=== PATIENT | female | born 1980 | race Caucasian/White ===

== ENCOUNTER 2018-10-08 06:35 | Emergency (ER) | payer OTHER ==
[2018-10-08 06:54] VITALS: BP 156/100; TEMP 99.5; BMI 57.4
[2018-10-08] MEDS ORDERED: SODIUM CHLORIDE 1,000 ML IV STA (07:08)
[2018-10-08] MEDS ORDERED: DILAUDID 1 MG/ML SYRINGE IVP STA ×2 (07:11→10:21)
[2018-10-08] MEDS ORDERED: ZOFRAN 4 MG/2 ML IVP STA (07:11)
--- NOTE | 2018-10-08 09:07 | CT ---
EXAM: CT scan of the abdomen pelvis with and without contrast HISTORY: Abdominal pain TECHNIQUE: Helical imaging of the abdomen pelvis was performed before and after the intravenous admi nistration of contrast. 3 mm thin axial images and coronal and sagittal reconstructions were provide d for interpretation. Comparison 10/14/2015 CT scan of the abdomen and pelvis. FINDINGS: There has been previous cholecystectomy. Low density changes are seen throughout the pare nchyma of the liver. The spleen, pancreas, adrenal glands and kidneys appear normal. The proximal u reters are normal size. Inflammatory changes are seen within the small bowel mesentery seen on axial image number 80. There is abnormal free air seen within the small bowel mesentery seen on axial image number 72. The colon appears to be normal caliber. Diverticular disease of the descending colon and sigmoid colon is identified without acute inflammation. The helical images obtained through the pelvis demonstrate a normal appearance of the rectum, urinary bladder. There is no free fluid seen within the pelvis. The appendix was not well seen. Lung bases are clear. No lytic or blastic lesions are seen within the osseous structures. IMPRESSION: Inflammatory changes are seen along the proximal to mid small bowel and the findings may represent enteritis. There is free air seen within the small bowel mesentery concerning for perforat ion of the small bowel. Surgery consult is recommended. No evidence for bowel obstruction or abscess formation. Diverticular disease of the distal colon without acute inflammation. Critical result: The findings were communicated to at 9:02 a.m. 10/08/2018.
--- NOTE | 2018-10-08 09:32 | ED.PDOC ---
General ED Provider: Dr. JABIER NAVARRO-ER Chief Complaint: Abdominal Pain Stated Complaint: im hurting bad Time Seen by Physician: 06:45 Mode of Arrival: Walk-In Information Source: Patient Exam Limitations: No limitations Nursing and Triage Documentation Reviewed and Agree: Yes Does patient meet sepsis criteria?: No System Inflammatory Response Syndrome: Not Applicable Sepsis Protocol: For patient's 13 years and over: Temp is 96.8 and below OR 101 and greater Pulse >90 BPM Resp >20/minute Acutely Altered Mental Status Are patient's symptoms suggestive of a new infection, such as: -Pneumonia -Skin, Soft Tissue -Endocarditis -UTI -Bone, Joint Infection -Implantable Device -Acute Abdominal Infection -Wound Infection -Meningitis -Blood Stream Catheter Infection -Unknown GI Complaint Exam - Abdominal Pain Complaint/Exam Onset: Gradual Duration: several hours Symptoms Are: Still present Timing: Constant Initial Severity: Mild Current Severity: Moderate Location of Pain: Diffuse Character: Reports: Dull, Cramping Aggravating: Reports: Movement Alleviating: Reports: None Associated Signs and Symptoms: Reports: Nausea Patient Rh Status: Unknown Abdominal Findings: Present: Rebound tenderness Differential Diagnoses: Appendicitis, Bowel Obstruction Quality Indicator For Non-Traumatic Chest Pain/Syncope: EKG Performed Review of Systems - Review Of Systems Constitutional: Reports: No symptoms Eyes: Reports: No symptoms Ears, Nose, Mouth, Throat: Reports: No symptoms Respiratory: Reports: No symptoms Cardiac: Reports: No symptoms GI: Reports: Abdominal pain, Nausea : Reports: No symptoms Musculoskeletal: Reports: No symptoms Skin: Reports: No symptoms Neurological: Reports: No symptoms Endocrine: Reports: No symptoms Hematologic/Lymphatic: Reports: No symptoms All Other Systems: Reviewed and Negative Past Medical History - Past Medical History Previously Healthy: No Endocrine: Reports: Unknown Cardiovascular: Reports: Unknown Respiratory: Reports: Unknown Hematological: Reports: Unknown Gastrointestinal: Reports: Unknown Genitourinary: Reports: Unknown Neuro/Psych: Reports: Unknown Musculoskeletal: Reports: Unknown Cancer: Reports: Unknown Last Menstrual Period: 3 YEARS - Surgical History General Surgical History: Reports: Unknown - Family History Family History: Reports: Unknown - Social History Smoking Status: Current every day smoker, Light tobacco smoker Hx Substance Use: No Alcohol Screening: Occasionally - Immunizations Tetanus Shot up to Date: Yes Physical Exam - Physical Exam Appearance: Obese Pain Distress: Moderate Eyes: JESUS MANUEL, EOMI, Conjunctiva clear ENT: Ears normal, Nose normal, Oropharynx normal Neck: Supple Respiratory: Airway patent Cardiovascular: RRR, Pulses normal, No rub, No murmur GI/: No Organomegaly, Tender, Bowel sounds hypoactive Musculoskeletal: Normal strength, ROM intact, No edema, No calf tenderness Skin: Warm, Dry, Normal color Neurological: Sensation intact Psychiatric: Affect appropriate, Mood appropriate Interpretation - Radiology Interpretation Radiology Interpretation By: Radiologist Radiology Results: Positive Exam Interpreted: CT Scan - EKG Interpretation Time of EKG #1: 09:33 Rate: Normal Rhythm: Sinus Ectopy: None [place]: NL ST Segment: Normal Interpretation: nsr Re-Evaluation - Re-Evaluation Time of Re-Evaluation: 09:54 Status: Improved Vital Signs Stable: Yes Pain Level: 1 Appearance: NAD Lungs: Clear Skin: Warm and Dry Neuro: Alert and Oriented X3 CV: RRR Physician Notification - Case Discussed Physician Notified: dr morejon(er) and dr rich chan(surgery) accepted at [facility] Time of Notification: 09:55 Physician Notified: dr welsh (surgery) declined due to UC with possible complications Time of Notification: 09:55 Critical Care Note - Critical Care Note Total Time (mins): 30 Course - Course Hematology/Chemistry: 10/08/18 07:40 10/08/18 07:40 Orders, Labs, Meds: Lab Review 10/08/18 10/08/18 10/08/18 07:05 07:40 07:40 WBC 19.65 H RBC 4.44 Hgb 12.6 Hct 37.1 MCV 83.6 MCH 28.4 MCHC 34.0 RDW Coeff of Marcelo 14.6 Plt Count 266 Immature Gran % (Auto) 0.5 Neut % (Auto) 86.4 Lymph % (Auto) 8.3 L [place] % (Auto) 4.1 Eos % (Auto) 0.4 Baso % (Auto) 0.3 Immature Gran # (Auto) 0.1 Neut # (Auto) 17.0 H Lymph # (Auto) 1.6 Hard[place] # (Auto) 0.8 Eos # (Auto) 0.1 Baso # (Auto) 0.1 Puncture Site Rb O2 Saturation 99.0 ABG pH 7.560 H* ABG pCO2 26.1 L ABG pO2 114.0 H ABG HCO3 23.4 ABG Total CO2 24 ABG Base Excess 1 FiO2 % 21.0 Sodium 131.1 L Potassium 3.79 Chloride 99.2 Carbon Dioxide 25.4 Anion Gap 10.29 BUN 7.1 Creatinine 0.55 L Estimated GFR (MDRD) 122.00 BUN/Creatinine Ratio 12.90 Glucose 210.8 H Lactic Acid Calcium 8.80 Total Bilirubin 0.76 AST 22.3 ALT 30.9 Alkaline Phosphatase 48.6 Total Creatine Kinase 61.8 Troponin I < 0.012 Total Protein 6.71 Albumin 3.64 Globulin 3.07 Albumin/Globulin Ratio 1.18 Amylase 51.7 Lipase 29.5 Procalcitonin Serum , Qual 10/08/18 10/08/18 10/08/18 07:40 07:40 07:40 WBC RBC Hgb Hct MCV MCH MCHC RDW Coeff of Marcelo Plt Count Immature Gran % (Auto) Neut % (Auto) Lymph % (Auto) [place] % (Auto) Eos % (Auto) Baso % (Auto) Immature Gran # (Auto) Neut # (Auto) Lymph # (Auto) [place] # (Auto) Eos # (Auto) Baso # (Auto) Puncture Site O2 Saturation ABG pH ABG pCO2 ABG pO2 ABG HCO3 ABG Total CO2 ABG Base Excess FiO2 % Sodium Potassium Chloride Carbon Dioxide Anion Gap BUN Creatinine Estimated GFR (MDRD) BUN/Creatinine Ratio Glucose Lactic Acid 1.22 Calcium Total Bilirubin AST ALT Alkaline Phosphatase Total Creatine Kinase Troponin I Total Protein Albumin Globulin Albumin/Globulin Ratio Amylase Lipase Procalcitonin 0.86 Serum , Qual Negative Orders Category Date Time Status ABG DRAW REQUEST Stat CARDIO 10/08/18 07:05 Completed EKG-(ED ONLY) Stat CARDIO 10/08/18 07:05 Completed NPO REMINDER: IMAGING ONCE CARE 10/08/18 07:09 Completed IV [ED IV/MEDIPORT/POWERPORT] .ONCE EMERGENCY 10/08/18 07:07 Active ABG Stat LAB 10/08/18 07:05 Completed AMYLASE Stat LAB 10/08/18 07:40 Completed BLOOD CULTURE (ED ONLY) Stat LAB 10/08/18 07:40 Received CBC W/ AUTO DIFF Stat LAB 10/08/18 07:40 Completed COMPREHENSIVE METABOLIC PANEL Stat LAB 10/08/18 07:40 Completed CREATINE KINASE Stat LAB 10/08/18 07:40 Completed LACTIC ACID Stat LAB 10/08/18 07:40 Completed LIPASE Stat LAB 10/08/18 07:40 Completed PROCALCITONIN Stat LAB 10/08/18 07:40 Completed SERUM Stat LAB 10/08/18 07:40 Completed TROPONIN I Stat LAB 10/08/18 07:40 Completed URINALYSIS C & S IF INDICATED Stat LAB 10/08/18 07:05 Uncollected 0.9 % Sodium Chloride [Saline Flush] MEDS 10/08/18 07:07 Active 1 syr IVF PRN PRN Hydromorphone HCl [Dilaudid 1 mg/ml Syringe] MEDS 10/08/18 07:11 Discontinued 1 mg IVP ONCE STA Ondansetron HCl/Pf [Zofran 4 mg/2 ml] MEDS 10/08/18 07:11 Discontinued 4 mg IVP ONCE STA Piperacillin Sodium/Tazobactam [Zosyn 3.375 gm] 3.375 MEDS 10/08/18 09:49 Active gm 0.9 % Sodium Chloride [Sodium Chloride] 50 ml IV ONCE Sodium Chloride 0.9% [Sodium Chloride] 1,000 ml MEDS 10/08/18 07:08 Active IV 100 mls/hr CT ABDOMEN/PELVIS W/WO CONTRAS Stat RADS 10/08/18 07:09 Completed Medications Generic Name Dose Route Start Last Admin Trade Name Freq PRN Reason Stop Dose Admin Sodium Chloride 1,000 mls @ 100 mls/hr 10/08/18 07:08 10/08/18 07:53 Sodium Chloride IV 10/08/18 17:07 100 mls/hr .Q10H STA Administration Piperacillin Sod/Tazobactam 50 mls @ 50 mls/hr 10/08/18 09:49 Sod 3.375 gm/ Sodium Chloride IV 10/08/18 10:48 ONCE STA Sodium Chloride 1 syr 10/08/18 07:07 10/08/18 07:56 Saline Flush IVF 1 syr PRN PRN Administration To flush IV Discontinued Medications Generic Name Dose Route Start Last Admin Trade Name Freq PRN Reason Stop Dose Admin Hydromorphone HCl 1 mg 10/08/18 07:11 10/08/18 07:51 Dilaudid 1 Mg/Ml Syringe IVP 10/08/18 07:12 1 mg ONCE STA Administration Ondansetron HCl 4 mg 10/08/18 07:11 10/08/18 07:50 Zofran 4 Mg/2 Ml IVP 10/08/18 07:12 4 mg ONCE STA Administration It should be known dr welsh declined due to UC hx--i offered her a transfer [facility] ER but she declined and desires to go to [place] for tx--she understands we do not have helicopter or fixed wing for transport) Vital Signs: Temp Pulse Resp BP Pulse Ox 10/08/18 06:36 99.5 F 131 H 28 H 156/100 H 97 Departure - Departure Time of Disposition: 09:55 Disposition: TSF SHORT-TRM HOSP Discharge Problem: Small bowel perforation Instructions: Perforated Bowel (DC) Condition: Stable Pt referred to PMD for follow-up: No IPMP verified?: No Allergies/Adverse Reactions: Allergies morphine Allergy (Intermediate, Verified 10/08/18 06:56) Itching ciprofloxacin [From Cipro] Adverse Reaction (Verified 10/08/18 06:56) Itching ALLERGY ONLY TO IV CIPRO CAN TAKE PO CIPRO WITHOUT PROBLEMS Home Medications: Ambulatory Orders Hydrocodone/Acetaminophen [[place] 7.5-325 Tablet] 1 each PO TID PRN 06/12/15 Restful Legs Otc 1 tab-cap PO BEDTIME 16 Metformin HCl 500 mg PO BID 10/08/18 Transfer Form Completed: Yes Disposition Discussed With: Patient, Family
[2018-10-08] MEDS ORDERED: ZOSYN 3.375 GM 3.375 GM in SODIUM CHLORIDE 50 ML IV STA (09:49)
== END 2018-10-08 10:40 | disposition short-term general hospital (02) ==
LOC: ED 06:35
DX: K63.1 Perforation of intestine (nontraumatic) (principal); F17.210 Nicotine dependence, cigarettes, uncomplicated
CPT/HCPCS: 36415; 80053; 81001; 82150; 82550; 82803; 83605; 83690; 84145; 84484; 84703; 85025; 87040; 93005; 93010; 96361; 96365; 96375; 96376; 99285

== ENCOUNTER 2018-10-08 12:00 | Outpatient (CLI) ==
[2018-10-08 06:54] VITALS: BMI 57.4
== END 2018-10-08 14:03 | disposition short-term general hospital (02) ==
LOC: AMBL 12:00
PROVIDERS: ATTEND Family Medicine
DX: R10.0 Acute abdomen (principal)

== ENCOUNTER 2019-04-16 07:33 | Emergency (ER) ==
[2019-04-16 07:37] VITALS: BP 172/118; TEMP 97.9; BMI 49.4
--- NOTE | 2019-04-16 07:55 | ED.PDOC ---
General ED Provider: Dr. LAURA AREVALO Chief Complaint: Respiratory Complaint Stated Complaint: cough congestion Time Seen by Physician: 07:40 Mode of Arrival: Walk-In Information Source: Patient Exam Limitations: No limitations Nursing and Triage Documentation Reviewed and Agree: Yes Does patient meet sepsis criteria?: No System Inflammatory Response Syndrome: Not Applicable Sepsis Protocol: For patient's 13 years and over: Temp is 96.8 and below OR 101 and greater Pulse >90 BPM Resp >20/minute Acutely Altered Mental Status Are patient's symptoms suggestive of a new infection, such as: -Pneumonia -Skin, Soft Tissue -Endocarditis -UTI -Bone, Joint Infection -Implantable Device -Acute Abdominal Infection -Wound Infection -Meningitis -Blood Stream Catheter Infection -Unknown Respiratory Complaint Exam - Respiratory Complaint/Exam Symptoms Are: Still present Timing: Intermittent Initial Severity: Mild Current Severity: Mild Location: Chest Character: Reports: Non-productive cough Aggravating: Reports: None Alleviating: Reports: None Associated Signs and Symptoms: Reports: URI, Nasal congestion. Denies: Rapid breathing, Dyspnea, Fever, Chills, Chest pain, Pleuritic chest pain, Wheezing, Hemoptysis, Dizziness, Calf pain, Calf swelling, Edema, Hoarseness, Sinus discomfort, Vomiting, Sore throat, Weight loss, Decreased oral intake, Increased thirst, Increased appetite, Increased urination Related History: Reports: Similar episode History of Healthcare-Acquired Pneumonia: No Related Surgical History: Reports: None Pulmonary Embolism Risk Factors: None Cardiac Risk Factors: Reports: None Pseudomonas Risk Factors: Reports: None Tuberculosis Risk Factors: Reports: None Status Asthmaticus Risk Factors: Reports: None Home Oxygen Use: No Recent Stress Test: No Recent Echo/LV Function: No Current Antibiotic Use: No Current Asthma Medication Use: No Respiratory Distress: None Inadequate Respiratory Effort: No Dysphagia Present: No Stridor Present: No JVD Present: No Accessory Muscle Use: No Retractions: Not Present Diminished Breath Sounds: Yes Grunting Respirations: No Kussmaul Respirations: No Differential Diagnoses: Pneumonia, Bronchitis Review of Systems - Review Of Systems Constitutional: Reports: No symptoms Eyes: Reports: No symptoms Ears, Nose, Mouth, Throat: Reports: No symptoms Respiratory: Reports: Cough Cardiac: Reports: No symptoms GI: Reports: No symptoms : Reports: No symptoms Musculoskeletal: Reports: No symptoms Skin: Reports: No symptoms Neurological: Reports: No symptoms Endocrine: Reports: No symptoms Hematologic/Lymphatic: Reports: No symptoms All Other Systems: Reviewed and Negative Past Medical History - Past Medical History Previously Healthy: No Endocrine: Reports: Unknown Cardiovascular: Reports: Unknown Respiratory: Reports: Unknown Hematological: Reports: Unknown Gastrointestinal: Reports: Unknown Genitourinary: Reports: Unknown Neuro/Psych: Reports: Unknown Musculoskeletal: Reports: Unknown Cancer: Reports: Unknown Last Menstrual Period: 3 years ago - Surgical History General Surgical History: Reports: Unknown - Family History Family History: Reports: Unknown - Social History Smoking Status: Current every day smoker, Light tobacco smoker Hx Substance Use: No Alcohol Screening: Occasionally Physical Exam - Physical Exam Appearance: Well-appearing, No pain distress, Well-nourished Eyes: JESUS MANUEL, EOMI, Conjunctiva clear ENT: Ears normal, Nose normal, Oropharynx normal Respiratory: Rhonchi Cardiovascular: RRR, Pulses normal, No rub, No murmur GI/: Soft, Nontender, No masses, Bowel sounds normal, No Organomegaly Musculoskeletal: Normal strength, ROM intact, No edema, No calf tenderness Skin: Warm, Dry, Normal color Neurological: Sensation intact, Motor intact, Reflexes intact, Cranial nerves intact, Alert, Oriented Psychiatric: Affect appropriate, Mood appropriate Critical Care Note - Critical Care Note Total Time (mins): 0 Course - Course Orders, Labs, Meds: Orders Category Date Time Status CHEST, 2 VIEWS PA & LAT Stat RADS 04/16/19 07:50 Ordered Vital Signs: Temp Pulse Resp BP Pulse Ox 04/16/19 07:34 97.9 F 94 H 20 172/118 H 95 Departure - Departure Time of Disposition: 07:59 Disposition: HOME SELF-CARE Discharge Problem: Bronchitis Sinusitis Qualifiers: Sinusitis location: maxillary Chronicity: acute Recurrence: non-recurrent Qualified Code(s): J01.00 - Acute maxillary sinusitis, unspecified Instructions: Acute Bronchitis (ED), Sinusitis (ED) Condition: Good Pt referred to PMD for follow-up: Yes IPMP verified?: No Additional Instructions: Please call your Family Physician as soon as possible to schedule a follow-up appointment. Prescriptions: Amoxicillin 500 mg PO Q6HR #30 tablet Allergies/Adverse Reactions: Allergies morphine Allergy (Intermediate, Verified 04/16/19 07:37) Itching ciprofloxacin [From Cipro] Adverse Reaction (Verified 04/16/19 07:37) Itching ALLERGY ONLY TO IV CIPRO CAN TAKE PO CIPRO WITHOUT PROBLEMS Home Medications: Ambulatory Orders Hydrocodone/Acetaminophen [[place] 7.5-325 Tablet] 1 each PO TID PRN 06/12/15 Metformin HCl 500 mg PO BID 10/08/18 Amoxicillin 500 mg PO Q6HR #30 tablet 04/16/19 Levothyroxine Sodium [Synthroid] 04/16/19 Pravastatin Sodium [Pravachol] 20 mg PO DAILY 04/16/19 Disposition Discussed With: Patient
--- NOTE | 2019-04-16 08:13 | DI ---
Exam: Two views of the chest. Comparison: 01/27/2016. Reason for exam: Cough. FINDINGS: No pneumothorax, pleural effusion, or focal consolidation. The cardiac silhouette is not enlarged. The imaged osseous structures appear grossly unremarkable without acute fracture. Impression: No acute cardiopulmonary process.
== END 2019-04-16 08:23 | disposition home or self-care (01) ==
LOC: ED 07:33
DX: J40 Bronchitis, not specified as acute or chronic (principal); J01.00 Acute maxillary sinusitis, unspecified; F17.210 Nicotine dependence, cigarettes, uncomplicated
CPT/HCPCS: 99282

== ENCOUNTER 2019-06-18 08:20 | Emergency (ER) ==
[2019-06-18 08:28] VITALS: TEMP 98.6; BMI 48.1
--- NOTE | 2019-06-18 08:41 | ED.PDOC ---
General ED Provider: Dr. 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) Time Seen by Physician: 08:35 Mode of Arrival: Walk-In Information Source: Patient Nursing and Triage Documentation Reviewed and Agree: Yes Does patient meet sepsis criteria?: No System Inflammatory Response Syndrome: Not Applicable Sepsis Protocol: For patient's 13 years and over: Temp is 96.8 and below OR 101 and greater Pulse >90 BPM Resp >20/minute Acutely Altered Mental Status Are patient's symptoms suggestive of a new infection, such as: -Pneumonia -Skin, Soft Tissue -Endocarditis -UTI -Bone, Joint Infection -Implantable Device -Acute Abdominal Infection -Wound Infection -Meningitis -Blood Stream Catheter Infection -Unknown Review of Systems - Review Of Systems Constitutional: Reports: Malaise Respiratory: Reports: No symptoms Cardiac: Reports: No symptoms : Reports: No symptoms (Had STD 1 month ago; TXd with Metronidazole - check up last week benign) Skin: Reports: No symptoms Neurological: Reports: No symptoms All Other Systems: Reviewed and Negative Past Medical History - Past Medical History Previously Healthy: No Endocrine: Reports: Unknown Cardiovascular: Reports: Unknown Respiratory: Reports: Unknown Hematological: Reports: Unknown Gastrointestinal: Reports: Unknown Genitourinary: Reports: Unknown Neuro/Psych: Reports: Unknown Musculoskeletal: Reports: Unknown Cancer: Reports: Unknown Last Menstrual Period: 1 1/2 mo ago--spotted - Surgical History General Surgical History: Reports: Unknown - Family History Family History: Reports: Unknown - Social History Smoking Status: Current every day smoker, Heavy tobacco smoker Hx Substance Use: No Alcohol Screening: Occasionally Physical Exam - Physical Exam Appearance: Ill-appearing Ill-appearing: Mild Pain Distress: Moderate Eyes: JESUS MANUEL, EOMI ENT: Oropharynx normal Neck: Supple Respiratory: Airway patent, Breath sounds clear, Respirations nonlabored Cardiovascular: RRR, Pulses normal GI/: Soft, Tender (with palpation RLQ also with palpation LLQ gives pain RLQ; rebound +), Bowel sounds hyperactive Skin: Warm, Dry, Normal color Neurological: Sensation intact, Motor intact, Alert, Oriented Psychiatric: Affect appropriate, Mood appropriate Re-Evaluation - Re-Evaluation Time of Re-Evaluation: 09:20 (Discussed plan for CT abd/pelvis) Status: Unchanged Vital Signs Stable: Yes Appearance: Other (Uncomfortable in bed) Neuro: Alert and Oriented X3 Critical Care Note - Critical Care Note Total Time (mins): 20 Course - Course Hematology/Chemistry: 06/18/19 08:52 06/18/19 08:52 Orders, Labs, Meds: Lab Review 06/18/19 06/18/19 06/18/19 08:52 08:52 08:52 WBC 11.89 H RBC 4.47 Hgb 13.0 Hct 39.2 MCV 87.7 MCH 29.1 MCHC 33.2 RDW Coeff of Marcelo 14.4 Plt Count 303 Immature Gran % (Auto) 0.3 Neut % (Auto) 65.4 Lymph % (Auto) 22.2 [place] % (Auto) 5.0 Eos % (Auto) 6.7 Baso % (Auto) 0.4 Immature Gran # (Auto) 0.0 Neut # (Auto) 7.8 H Lymph # (Auto) 2.6 [place] # (Auto) 0.6 Eos # (Auto) 0.8 H Baso # (Auto) 0.1 Sodium 138.9 Potassium 4.05 Chloride 104.9 Carbon Dioxide 25.9 Anion Gap 12.15 BUN 7.6 Creatinine 0.72 Estimated GFR (MDRD) 89.00 BUN/Creatinine Ratio 10.55 Glucose 141.1 H Calcium 8.90 Total Bilirubin 0.53 AST 22.5 ALT 19.4 Alkaline Phosphatase 57.6 Total Protein 6.83 Albumin 3.66 Globulin 3.17 Albumin/Globulin Ratio 1.15 Serum , Qual Negative Urine Color Urine Clarity Urine pH Ur Specific Williams Urine Protein Urine Glucose (UA) Urine Ketones Urine Blood Urine Nitrite Urine Bilirubin Urine Urobilinogen Ur Leukocyte Esterase Urine Microscopic WBC Ur Squamous Epith Cells 06/18/19 09:55 WBC RBC Hgb Hct MCV MCH MCHC RDW Coeff of Marcelo Plt Count Immature Gran % (Auto) Neut % (Auto) Lymph % (Auto) [place] % (Auto) Eos % (Auto) Baso % (Auto) Immature Gran # (Auto) Neut # (Auto) Lymph # (Auto) [place] # (Auto) Eos # (Auto) Baso # (Auto) Sodium Potassium Chloride Carbon Dioxide Anion Gap BUN Creatinine Estimated GFR (MDRD) BUN/Creatinine Ratio Glucose Calcium Total Bilirubin AST ALT Alkaline Phosphatase Total Protein Albumin Globulin Albumin/Globulin Ratio Serum , Qual Urine Color Yellow Urine Clarity Cloudy Urine pH 5.5 Ur Specific Williams 1.025 Urine Protein Negative Urine Glucose (UA) Negative Urine Ketones Negative Urine Blood Negative Urine Nitrite Negative Urine Bilirubin Negative Urine Urobilinogen 0.2 Ur Leukocyte Esterase Negative Urine Microscopic WBC 0-2 Ur Squamous Epith Cells 10-20 Orders Category Date Time Status NPO REMINDER: IMAGING ONCE CARE 06/18/19 09:23 Completed NPO REMINDER: IMAGING ONCE CARE 06/18/19 09:26 Completed CBC W/ AUTO DIFF Stat LAB 06/18/19 08:52 Completed COMPREHENSIVE METABOLIC PANEL Stat LAB 06/18/19 08:52 Completed SERUM Stat LAB 06/18/19 08:52 Completed URINALYSIS C & S IF INDICATED Stat LAB 06/18/19 09:55 Completed Hydromorphone HCl [Dilaudid 1 mg/ml Syringe] MEDS 06/18/19 09:21 Discontinued 2 mg IVP ONCE STA Hydromorphone HCl/Pf [Dilaudid 4 mg/ml Syringe] MEDS 06/18/19 08:44 Discontinued 2 mg IVP ONCE STA Ondansetron HCl/Pf [Zofran 4 mg/2 ml] MEDS 06/18/19 08:47 Discontinued 4 mg IVP ONCE STA Sodium Chloride 0.9% [Sodium Chloride] 1,000 ml MEDS 06/18/19 08:[address] ABDOMEN/PELVIS W CONTRAST Stat RADS 06/18/19 09:25 Completed Medications Discontinued Medications Generic Name Dose Route Start Last Admin Trade Name Royalq PRN Reason Stop Dose Admin Hydromorphone HCl 2 mg 06/18/19 08:44 06/18/19 09:27 Dilaudid 4 Mg/Ml Syringe IVP 06/18/19 08:45 Not Given ONCE STA Hydromorphone HCl 2 mg 06/18/19 09:21 06/18/19 09:38 Dilaudid 1 Mg/Ml Syringe IVP 06/18/19 09:22 2 mg ONCE STA Administration Sodium Chloride 1,000 mls @ 1,000 mls/hr 06/18/19 08:42 06/18/19 09:28 Sodium Chloride IV 06/18/19 09:41 1,000 mls/hr BOLUS STA Administration Ondansetron HCl 4 mg 06/18/19 08:47 06/18/19 09:29 Zofran 4 Mg/2 Ml IVP 06/18/19 08:48 4 mg ONCE STA Administration Vital Signs: Temp Pulse Resp BP Pulse Ox 06/18/19 10:02 134/94 H 06/18/19 08:20 98.6 F 98 H 20 173/120 H 95 Departure - Departure Time of Disposition: 10:40 Disposition: HOME SELF-CARE Discharge Problem: Diverticulitis Instructions: Diverticulitis (ED) Condition: Stable Pt referred to PMD for follow-up: Yes (Follow up with primary care; call for appointment) IPMP verified?: No (not applicable) Additional Instructions: Call primary care provider; let them know you were seen in ER and a CT was done. Mild Diverticulitis was identified and you were placed on Metronidazole - not Cipro because of allergy - ask Primary care if there is anything else they would like to add. We are not sure which "blue" pill for inflamation was added to the metronidazone last time you were treated for diverticulitis. Return to ER if worsening (doubleing up with pain) repeated vomiting or fever of 101 or above not relieved by tylenol. Prescriptions: Ondansetron [Zofran Odt] 4 mg PO Q6HR PRN #10 tab.rapdis PRN Reason: Nausea / Vomiting Metronidazole 500 mg PO TID #21 tablet Allergies/Adverse Reactions: Allergies morphine Allergy (Intermediate, Verified 06/18/19 08:30) Itching ciprofloxacin [From Cipro] Adverse Reaction (Verified 06/18/19 08:30) Itching ALLERGY ONLY TO IV CIPRO CAN TAKE PO CIPRO WITHOUT PROBLEMS Home Medications: Ambulatory Orders Hydrocodone/Acetaminophen [[place] 7.5-325 Tablet] 1 each PO TID PRN 06/12/15 Metformin HCl 500 mg PO BID 10/08/18 Levothyroxine Sodium [Synthroid] 0.25 mg PO DAILY 04/16/19 Pravastatin Sodium [Pravachol] 20 mg PO DAILY 04/16/19 Metronidazole 500 mg PO TID #21 tablet 06/18/19 Ondansetron [Zofran Odt] 4 mg PO Q6HR PRN #10 tab.rapdis 06/18/19 Disposition Discussed With: Patient
[2019-06-18] MEDS ORDERED: SODIUM CHLORIDE 1,000 ML IV STA (08:42)
[2019-06-18] MEDS ORDERED: DILAUDID 4 MG/ML SYRINGE IVP STA (08:44)
[2019-06-18] MEDS ORDERED: ZOFRAN 4 MG/2 ML IVP STA (08:47)
[2019-06-18] MEDS ORDERED: DILAUDID 1 MG/ML SYRINGE IVP STA (09:21)
[2019-06-18 10:03] VITALS: BP 134/94
--- NOTE | 2019-06-18 10:27 | CT ---
EXAM: CT ABDOMEN AND PELVIS HISTORY: Abdominal pain TECHNIQUE: CT abdomen and pelvis with intravenous contrast. Images were reconstructed using 5 mm se ction thickness. Reformations were prepared. FINDINGS: Compared to 10/08/2018. The elongated right hepatic lobe. Mild fatty infiltration of the liver. Spleen within normal limits . Gallbladder is absent. Pancreas and adrenal glands are within normal limits. There is no hydrone phrosis. Normal enhancement of the renal parenchyma. Normal abdominal aorta. Stomach is within normal limits. Normal appendix. There is mild to moderate distal colon diverticul osis. There is at least mild fatty stranding around the sigmoid colon which is also affected by the diverticulosis. This would be consistent with diverticulitis. There is no ascites, abscess or free air. Postop changes of the small bowel. No bowel obstruction is seen. There are hernias of the jefferson tral abdominal wall with the most inferior at the umbilicus having a sagittal neck of 2.6 cm. A supr aumbilical fatty hernia has sagittal neck of 3.2 cm. The umbilical level hernia is relatively stable to slightly worsened. The supraumbilical hernia is new. Bones reveal degenerative disc disease and arthropathy of the sacroiliac joints and hips. Lung bases are clear. IMPRESSION: 1. There is at least mild diverticulitis at the level of the sigmoid colon. No abscess, free air or bowel obstruction. 2. Fatty liver. 3. Ventral hernias as described in the last paragraph of report. These contain only fat.
== END 2019-06-18 11:01 | disposition home or self-care (01) ==
LOC: ED 08:20
DX: K57.92 Diverticulitis of intestine, part unspecified, without perforation or abscess without bleeding (principal); F17.210 Nicotine dependence, cigarettes, uncomplicated; Z79.899 Other long term (current) drug therapy
CPT/HCPCS: 36415; 80053; 81001; 84703; 85025; 96360; 96361; 96374; 96375; 99283

== ENCOUNTER 2019-07-02 03:14 | Emergency (ER) ==
[2019-07-02 03:21] VITALS: BP 153/88; TEMP 97
[2019-07-02 03:27] VITALS: BMI 48.6
--- NOTE | 2019-07-02 03:32 | ED.PDOC ---
General ED Provider: Dr. RADHA HUTCHINSON Chief Complaint: Abdominal Pain Stated Complaint: Pateint is a 39 year old female who comes to the ER with left lower abdominal pain that radiates tot he Back. was here two weeks prior and Diagnosed with diverticulitis. states that the pain is severe. She had vomited 4 times and has had on episode of diarrhea. Time Seen by Physician: 03:30 Mode of Arrival: Wheelchair Information Source: Patient Primary Care Provider: LAURA DALLAS Nursing and Triage Documentation Reviewed and Agree: Yes Does patient meet sepsis criteria?: No System Inflammatory Response Syndrome: Not Applicable Sepsis Protocol: For patient's 13 years and over: Temp is 96.8 and below OR 101 and greater Pulse >90 BPM Resp >20/minute Acutely Altered Mental Status Are patient's symptoms suggestive of a new infection, such as: -Pneumonia -Skin, Soft Tissue -Endocarditis -UTI -Bone, Joint Infection -Implantable Device -Acute Abdominal Infection -Wound Infection -Meningitis -Blood Stream Catheter Infection -Unknown GI Complaint Exam - Abdominal Pain Complaint/Exam Onset: Sudden Duration: tonight Symptoms Are: Still present Timing: Constant Initial Severity: Severe Current Severity: Severe Location of Pain: RLQ Character: Reports: Aching, Throbbing Aggravating: Reports: Movement, Position, Eating Alleviating: Reports: None Associated Signs and Symptoms: Reports: Nausea, Vomiting Cardiac Risk Factors: Reports: DM, Hypertension Ectopic Risk Factors: Reports: None Ovarian Torsion Risk Factors: Reports: None Surgical Obstruction Risk Factors: Reports: None Related Surgical History: Reports: Cholecystectomy Patient Rh Status: Unknown Abdominal Findings: Present: Rebound tenderness (Left lower abdomen ) Differential Diagnoses: Appendicitis, Bowel Obstruction, Diverticulitis, Pancreatitis Review of Systems - Review Of Systems Constitutional: Reports: No symptoms Eyes: Reports: No symptoms Ears, Nose, Mouth, Throat: Reports: No symptoms Respiratory: Reports: No symptoms Cardiac: Reports: No symptoms GI: Reports: Abdominal pain, Diarrhea (x1 ), Nausea, Poor appetite, Poor fluid intake, Vomiting : Reports: No symptoms Musculoskeletal: Reports: No symptoms Skin: Reports: No symptoms Neurological: Reports: Anxiety Endocrine: Reports: No symptoms Hematologic/Lymphatic: Reports: No symptoms All Other Systems: Reviewed and Negative Past Medical History - Past Medical History Previously Healthy: No Endocrine: Reports: None, DM 2, Dyslipidemia Cardiovascular: Reports: None Respiratory: Reports: Asthma Hematological: Reports: None Gastrointestinal: Reports: Diverticulitis, Other (ULCERATIVE COLITIS) Genitourinary: Reports: Kidney stones Neuro/Psych: Reports: Migraine Musculoskeletal: Reports: Arthritis, Back Pain, Joint Pain (Knee ) Cancer: Reports: None Last Menstrual Period: 4 YEARS AGO Other Pertinent Past Medical History: GUM DISEASE - Surgical History General Surgical History: Reports: Cholecystectomy, Tonsillectomy, Other (PE tubes ) - Family History Family History: Reports: Unknown - Social History Smoking Status: Current every day smoker, Heavy tobacco smoker Hx Substance Use: No Alcohol Screening: Occasionally - Immunizations Tetanus Shot up to Date: Yes Physical Exam - Physical Exam Appearance: Ill-appearing, Obese Ill-appearing: Moderate Pain Distress: Severe Eyes: JESUS MANUEL, EOMI, Conjunctiva clear ENT: Ears normal, Nose normal, Oropharynx normal Neck: Supple Respiratory: Airway patent, Breath sounds clear, Breath sounds equal, Respirations nonlabored Cardiovascular: RRR, Pulses normal, No rub, No murmur GI/: Tender (On the left lower quarant ) Musculoskeletal: Normal strength, ROM intact, No edema, No calf tenderness Skin: Warm, Dry, Normal color Neurological: Sensation intact, Motor intact, Reflexes intact, Cranial nerves intact, Alert, Oriented Psychiatric: Anxious Interpretation - Radiology Interpretation Radiology Interpretation By: Radiologist Radiology Results: No acute changes (Diverticulosis without) Exam Interpreted: CT Scan Critical Care Note - Critical Care Note Total Time (mins): 35 Course - Course Hematology/Chemistry: 07/02/19 03:35 07/02/19 03:35 Orders, Labs, Meds: Lab Review 07/02/19 07/02/19 07/02/19 03:35 03:35 04:40 WBC 14.16 H RBC 4.73 Hgb 13.7 Hct 41.9 MCV 88.6 MCH 29.0 MCHC 32.7 RDW Coeff of Marcelo 14.6 Plt Count 332 Immature Gran % (Auto) 0.4 Neut % (Auto) 63.4 Lymph % (Auto) 24.5 Ada % (Auto) 3.9 Eos % (Auto) 7.2 H Baso % (Auto) 0.6 Immature Gran # (Auto) 0.1 Neut # (Auto) 9.0 H Lymph # (Auto) 3.5 H Ada # (Auto) 0.6 Eos # (Auto) 1.0 H Baso # (Auto) 0.1 Sodium 140.2 Potassium 3.91 Chloride 102.7 Carbon Dioxide 28.3 Anion Gap 13.11 BUN 13.3 Creatinine 0.83 Estimated GFR (MDRD) 76.00 BUN/Creatinine Ratio 16.02 Glucose 165.5 H Calcium 9.24 Total Bilirubin 0.35 AST 27.3 ALT 32.4 Alkaline Phosphatase 73.2 Total Protein 7.38 Albumin 4.17 Globulin 3.21 Albumin/Globulin Ratio 1.29 Amylase 70.8 Lipase 57.3 Urine Color Yellow Urine Clarity Cloudy Urine pH 5.5 Ur Specific Rickreall 1.025 Urine Protein 1+ Urine Glucose (UA) Negative Urine Ketones Negative Urine Blood 3+ Urine Nitrite Negative Urine Bilirubin Negative Urine Urobilinogen 0.2 Ur Leukocyte Esterase Negative Urine Microscopic RBC 50-100 Ur Squamous Epith Cells Not present Ur Transition Epith Cell 2-5 Orders Category Date Time Status NPO REMINDER: IMAGING ONCE CARE 07/02/19 03:45 Active ED IV/MEDIPORT/POWERPORT .ONCE EMERGENCY 07/02/19 03:35 Active AMYLASE Stat LAB 07/02/19 03:35 Completed CBC W/ AUTO DIFF Stat LAB 07/02/19 03:35 Completed COMPREHENSIVE METABOLIC PANEL Stat LAB 07/02/19 03:35 Completed LIPASE Stat LAB 07/02/19 03:35 Completed URINALYSIS C & S IF INDICATED Stat LAB 07/02/19 04:40 Completed 0.9 % Sodium Chloride [Saline Flush] MEDS 07/02/19 03:35 Active 1 syr IVF PRN PRN Hydromorphone HCl [Dilaudid 1 mg/ml Syringe] MEDS 07/02/19 03:35 Discontinued 1 mg IVP ONCE STA Ondansetron HCl/Pf [Zofran 4 mg/2 ml] MEDS 07/02/19 03:35 Discontinued 4 mg IVP ONCE STA Sodium Chloride 0.9% [Sodium Chloride] 1,000 ml MEDS 07/02/19 03:[address] ABDOMEN/PELVIS W/WO CONTRAS Stat RADS 07/02/19 03:43 Completed Medications Generic Name Dose Route Start Last Admin Trade Name Freq PRN Reason Stop Dose Admin Sodium Chloride 1 syr 07/02/19 03:35 07/02/19 03:44 Saline Flush IVF 1 syr PRN PRN Administration To flush IV Discontinued Medications Generic Name Dose Route Start Last Admin Trade Name Freq PRN Reason Stop Dose Admin Hydromorphone HCl 1 mg 07/02/19 03:35 07/02/19 03:45 Dilaudid 1 Mg/Ml Syringe IVP 07/02/19 03:36 1 mg ONCE STA Administration Sodium Chloride 1,000 mls @ 1,000 mls/hr 07/02/19 03:35 07/02/19 03:42 Sodium Chloride IV 07/02/19 04:34 1,000 mls/hr BOLUS STA Administration Ondansetron HCl 4 mg 07/02/19 03:35 07/02/19 03:45 Zofran 4 Mg/2 Ml IVP 07/02/19 03:36 4 mg ONCE STA Administration Vital Signs: Temp Pulse Resp BP Pulse Ox 07/02/19 03:14 97 F L 92 H 20 153/88 H 97 Departure - Departure Time of Disposition: 05:36 Disposition: HOME SELF-CARE Discharge Problem: Abdominal pain Instructions: Abdominal Pain (ED) Condition: Stable Pt referred to PMD for follow-up: Yes IPMP verified?: No Additional Instructions: DO NOT TAKE YOUR GLUCOPHAGE FOR THE NEXT 2 DAYS DUE TO RECEIVING IV CONTRAST FOR CT SCAN TAKE MEDICATIONS PRESCRIBED FOLLOW UP WITH pcp IN 3 DAYS Prescriptions: Dicyclomine HCl [Bentyl] 10 mg PO TID PRN #20 capsule PRN Reason: Abdominal Pain Ondansetron [Zofran Odt] 4 mg PO Q8H #20 tab.rapdis Allergies/Adverse Reactions: Allergies morphine Allergy (Intermediate, Verified 07/02/19 03:21) Itching ciprofloxacin [From Cipro] Adverse Reaction (Verified 07/02/19 03:21) Itching ALLERGY ONLY TO IV CIPRO CAN TAKE PO CIPRO WITHOUT PROBLEMS Home Medications: Ambulatory Orders Metformin HCl 500 mg PO BID 10/08/18 Dicyclomine HCl [Bentyl] 10 mg PO TID PRN #20 capsule 07/02/19 Hydrocodone/Acetaminophen [Hydrocodon-Acetaminoph 7.5-325] 1 each PO TID Ondansetron [Zofran Odt] 4 mg PO Q8H #20 tab.rapdis 07/02/19
[2019-07-02] MEDS ORDERED: SODIUM CHLORIDE 1,000 ML IV STA (03:35)
[2019-07-02] MEDS ORDERED: DILAUDID 1 MG/ML SYRINGE IVP STA (03:35)
[2019-07-02] MEDS ORDERED: ZOFRAN 4 MG/2 ML IVP STA (03:35)
--- NOTE | 2019-07-02 05:09 | CT ---
EXAM: CT abdomen pelvis without and with intravenous contrast 07/02/2019. Sagittal and coronal refo rmatted images obtained HISTORY: Lower abdominal pain COMPARISON: 06/18/2019 FINDINGS: The liver shows no acute abnormality. Gallbladder has been removed. The adrenal glands a nd kidneys show no acute process. The spleen and pancreas show no acute abnormality. There is no evidence of bowel obstruction. The appendix is normal. Unremarkable urinary bladder. No free air or free fluid. Colonic diverticulosis without evidence of acute diverticulitis. Multiple sites of fat containing ventral hernia. No bowel herniation. Chronic degenerative disc disease. No acute osseous abnormality. IMPRESSION: 1. No urinary or bowel obstruction and normal appendix. 2. Status post cholecystectomy. 3. Diverticulosis without diverticulitis. 4. Multifocal fat containing midline ventral hernia. No bowel herniation. 5. No acute inflammatory process identified within the abdomen or pelvis.
== END 2019-07-02 05:57 | disposition home or self-care (01) ==
LOC: ED 03:14
DX: R10.9 Unspecified abdominal pain (principal); R11.2 Nausea with vomiting, unspecified; R19.7 Diarrhea, unspecified; K57.92 Diverticulitis of intestine, part unspecified, without perforation or abscess without bleeding; E11.9 Type 2 diabetes mellitus without complications; I10 Essential (primary) hypertension; E78.5 Hyperlipidemia, unspecified; F17.210 Nicotine dependence, cigarettes, uncomplicated; Z87.442 Personal history of urinary calculi
CPT/HCPCS: 36415; 80053; 81001; 82150; 83690; 85025; 96361; 96374; 96375; 99283